=== PATIENT | female | born 1985 | race Caucasian/White ===

== ENCOUNTER 2016-04-03 00:49 | Emergency (ER) | payer OTHER ==
[~2016-04-03] VITALS: Ht 167.6 cm; Wt 151.6 kg
[~2016-04-03 00:49] MED LIST: DILA2TAB2 PO; FLUVOXAMINE PO; LORA-474 PO; PERC10TA27 PO; VERA80TA PO
[2016-04-03] MEDS ORDERED: VERA120T3 PO (01:01)
[2016-04-03] MEDS ORDERED: HYDR-3583 PO (01:01)
[2016-04-03] MEDS ORDERED: IMIT25TA PO (01:01)
[2016-04-03 01:02] VITALS: BP 158/109; PULSE 96; RESP 20; TEMP 98.6; O2SAT 97
[2016-04-03] MEDS ORDERED: MAGNESIUM SULFATE 1 GM PREMIX 100 ML IV ONE (01:15)
[2016-04-03] MEDS ORDERED: VALPROATE INJ 500 MG in SODIUM CHLORIDE 0.9% INJ 100 ML IV ONE (01:15)
[2016-04-03] MEDS ORDERED: SODIUM CHLOR 0.9% 1000 ML INJ 1,000 ML IV SCH (01:30)
[2016-04-03] MEDS ORDERED: HYDROmorphone HCL PF 1 MG/ML VIAL IVP ONE ×2 (01:30→03:00)
[2016-04-03] MEDS ORDERED: ONDANSETRON HCL 4 MG/2 ML VIAL IV ONE ×2 (01:30→03:00)
--- NOTE | 2016-04-03 01:43 | PD ---
HPI Chief Complaint: Headache Time Seen by Provider: 01:00 Travel History International Travel<30 days: No Contact w/Intl Traveler<30days: No Traveled to known affect area: No History of Present Illness HPI The patient is a 30-year-old female, well-known to the emergency department because of her multiple visits for intractable migraine. She often needs admission for these because the migraine headache simply does not go away. She states that she took 10 mg of Imitrex which was called in to her tonight by Dr. Woods, her neurologist. She states the first 5 mg worked slightly but the second 5 mg did not. She states that in the past she was given large doses of valproic acid IV which worked. She states that when she was put on by mouth valproic acid her liver enzymes started to go up. Her liver enzymes have been normal as of 26 February of last year. This is her typical migraine type headache. She has not been vomiting and has minimal nausea. She denies any focal neurologic change. The patient has had extensive workup for these migraine headaches including MRI/MRA studies which all been negative. Apparently previous lumbar punctures were negative. The patient may have had some problems with steroid therapy and has been taken off of her steroids. PFSH Past Medical History Hx Anticoagulant Therapy: Yes (BABY ASA DAILY) Arthritis: Yes (RA) Asthma: Yes ( A CHILD ONLY) Autoimmune Disease: Yes (RA) Blood Disorders: Yes (FACTOR 2, MTHFR) Anxiety: Yes Depression: Yes Heart Rhythm Problems: Yes ("palpitations" ) Cancer: No Cardiovascular Problems: No High Cholesterol: Yes Chemotherapy: No Chest Pain: No Congestive Heart Failure: No COPD: No Cerebrovascular Accident: No Diabetes: No Diminished Hearing: No Endocrine: Yes Fibromyalgia: Yes Gastrointestinal Disorders: Yes GERD: Yes Genitourinary: Yes Headaches: Yes Hiatal Hernia: Yes Hypertension: No Immune Disorder: Yes (lyme disease ) Implanted Vascular Access Dvce: No Musculoskeletal: Yes Neurologic: Yes Psychiatric: Yes Reproductive: No Respiratory: Yes Immunizations Current: Yes Migraines: Yes Pneumonia: Yes Radiation Therapy: No Seizures: Yes Sickle Cell Disease: No Sleep Apnea: No Thyroid Disease: Yes (HYPOTHYROID) Ulcer: No ?: Unknown LMP: 03/20/2016 : 5 Para: 2 Miscarriage: 3 Ovarian Cysts: Yes Past Surgical History Abdominal Surgery: Yes AICD: No Arteriovenous Shunt: Yes Cholecystectomy: Yes Hysterectomy: No Insulin Pump: No Joint Replacement: No Oral Surgery: Yes (WISDOM TEETH) Pacemaker: No Other Surgery: Yes Social History Alcohol Use: No (none) Tobacco Use: No (QUIT AGE 18) Substance Use: No Allergies-Medications (Allergen,Severity, Reaction): Coded Allergies: Compazine (Verified Allergy, Intermediate, Rash, 04/03/16) Benadryl (Verified Allergy, Unknown, panic attack, 04/03/16) pt states only when given iv Fioricet (Verified Adverse Reaction, Severe, ANXIETY, 04/03/16) Reglan (Verified Adverse Reaction, Severe, ANXIETY, 04/03/16) Toradol (Verified Adverse Reaction, Severe, RASH, 04/03/16) Tramadol (Verified Adverse Reaction, Severe, MED REACTION, 04/03/16) Reported Meds & Prescriptions Reported Meds & Active Scripts Active Reported Hydrocodone-Acetaminophen 10-325 mg Tab 1 Tab PO TID PRN Imitrex (Sumatriptan Succinate) 25 Mg Tab 10 Mg PO ONCE PRN If a satisfactory response has not been obtained at 2 hours, a second dose may be administered Verapamil (Verapamil HCl) 120 Mg Tab 120 Mg PO DAILY [Luvoxamine] 100 Mg PO DAILY Ativan (Lorazepam) 1 Mg Tab 1 Mg PO BID PRN Percocet (Oxycodone-Acetaminophen) 10-325 mg Tab 1 Tab PO DAILY PRN Review of Systems Except as stated in HPI: all other systems reviewed are Neg Physical Exam Narrative GENERAL: The patient is alert, morbidly obese in moderate to severe distress with her headache. Her vital signs show pulse of 96 and blood pressure 138/109 but are otherwise normal. She answers questions quickly and appropriate and does not appear in any way intoxicated. SKIN: Warm and dry. No skin rash is noted. HEAD: Atraumatic. Normocephalic. EYES: Pupils equal and round. No scleral icterus. No injection or drainage. ENT: No nasal bleeding or discharge. Mucous membranes pink and moist. NECK: Trachea midline. No JVD. There is no meningismus present. CARDIOVASCULAR: Regular rate and rhythm. No murmur appreciated. RESPIRATORY: No accessory muscle use. Clear to auscultation. Breath sounds equal bilaterally. GASTROINTESTINAL: Abdomen soft, non-tender, nondistended. Hepatic and splenic margins not palpable. MUSCULOSKELETAL: No obvious deformities. No clubbing. No cyanosis. No edema. NEUROLOGICAL: Awake and alert. No obvious cranial nerve deficits. Motor grossly within normal limits. Normal speech. PSYCHIATRIC: Appropriate mood and affect; insight and judgment normal. Data Data Last Documented VS Vital Signs Date Time Temp Pulse Resp B/P Pulse Ox O2 Delivery O2 Flow Rate FiO2 04/03/16 03:45 73 17 118/85 95 Room Air 04/03/16 01:02 98.6 Orders Valproate Inj (Depacon Inj) (04/03/16 01:15) Complete Blood Count With Diff (04/03/16 01:12) Comprehensive Metabolic Panel (04/03/16 01:12) Urinalysis - C+S If Indicated (04/03/16 01:12) Magnesium (Mg) (04/03/16 01:12) Magnesium Sulfate 1 Gm Premix (Magnesium (04/03/16 01:15) Hydromorphone Pf Inj (Dilaudid Pf Inj) (04/03/16 01:30) Ondansetron Inj (Zofran Inj) (04/03/16 01:30) Sodium Chlor 0.9% 1000 Ml Inj (Ns 1000 M (04/03/16 01:30) Ondansetron Inj (Zofran Inj) (04/03/16 03:00) Hydromorphone Pf Inj (Dilaudid Pf Inj) (04/03/16 03:00) Labs Laboratory Tests Test 04/03/16 04/03/16 01:45 03:00 White Blood Count 11.0 TH/MM3 Red Blood Count 4.76 MIL/MM3 Hemoglobin 13.5 GM/DL Hematocrit 40.0 % Mean Corpuscular Volume 84.0 FL Mean Corpuscular Hemoglobin 28.4 PG Mean Corpuscular Hemoglobin 33.8 % Concent Red Cell Distribution Width 12.0 % Platelet Count 270 TH/MM3 Mean Platelet Volume 7.9 FL Neutrophils (%) (Auto) 59.7 % Lymphocytes (%) (Auto) 33.4 % Monocytes (%) (Auto) 3.9 % Eosinophils (%) (Auto) 2.1 % Basophils (%) (Auto) 0.9 % Neutrophils # (Auto) 6.6 TH/MM3 Lymphocytes # (Auto) 3.7 TH/MM3 Monocytes # (Auto) 0.4 TH/MM3 Eosinophils # (Auto) 0.2 TH/MM3 Basophils # (Auto) 0.1 TH/MM3 CBC Comment DIFF FINAL Differential Comment Sodium Level 142 MEQ/L Potassium Level 3.8 MEQ/L Chloride Level 104 MEQ/L Carbon Dioxide Level 32.6 MEQ/L Anion Gap 5 MEQ/L Blood Urea Nitrogen 9 MG/DL Creatinine 0.76 MG/DL Estimat Glomerular Filtration 88 ML/MIN Rate Random Glucose 143 MG/DL Calcium Level 8.8 MG/DL Magnesium Level 1.8 MG/DL Total Bilirubin 0.3 MG/DL Aspartate Amino Transf 17 U/L (AST/SGOT) Alanine Aminotransferase 23 U/L (ALT/SGPT) Alkaline Phosphatase 65 U/L Total Protein 7.7 GM/DL Albumin 3.3 GM/DL Urine Color YELLOW Urine Turbidity CLEAR Urine pH 6.0 Urine Specific [place] 1.022 Urine Protein NEG mg/dL Urine Glucose (UA) NEG mg/dL Urine Ketones TRACE mg/dL Urine Occult Blood TRACE Urine Nitrite NEG Urine Bilirubin NEG Urine Leukocyte Esterase TRACE Urine RBC 0-3 /hpf Urine WBC 3-5 /hpf Urine Squamous Epithelial 6-8 /hpf Cells Urine Bacteria OCC /hpf Microscopic Urinalysis Comment CULT NOT INDICATED MDM Medical Decision Making Medical Screen Exam Complete: Yes Emergency Medical Condition: Yes Medical Record Reviewed: Yes Interpretation(s) The complete metabolic profile shows a bicarbonate of 32.6 with GFR of 88 and glucose 143 and albumen 3.3 but is otherwise unremarkable. The CBC is normal. Differential Diagnosis Migraine headache, cluster headache, anxiety, depression, intracranial hemorrhagehighly unlikely Narrative Course It is now 0350 and the patient requests more Dilaudid. It is now 0408 and the patient's headache is resolving but she feels anxious. The patient will be given 1 mg of Ativan IV and go home and try and sleep. She does want to go home. Diagnosis Primary Impression: Migraine headache Additional Impression: Anxiety and depression Additional Instructions: Follow-up with Dr. Woods. When you go home try to sleep and you can take another 1 mg of Ativan to help you sleep and for the anxiety. Med/Other Pt SpecificInfo: No Change to Meds Disposition: 01 DISCHARGE HOME Condition: Stable Johnathan Majano MD Apr 03, 2016 01:43
[2016-04-03 01:50] LABS: AUTOMATED NEUTROPHIL # 6.6 TH/MM3 (1.8-7.7); BASOPHIL # 0.1 TH/MM3 (0-0.2); BASOPHIL % 0.9 % (0.0-2.0); EOSINOPHIL # 0.2 TH/MM3 (0-0.4); EOSINOPHIL % 2.1 % (0.0-4.0); HEMO FLAGS DIFF FINAL; LYMPH % 33.4 % (9.0-44.0); LYMPHOCYTE # 3.7 TH/MM3 (1.0-4.8); MEAN CORPUSCULAR HEMOGLOBIN 28.4 PG (27.0-34.0); MEAN CORPUSCULAR HGB CONC 33.8 % (32.0-36.0); MONO % 3.9 % (0.0-8.0); NEUT % 59.7 % (16.0-70.0); PLATELET COUNT 270 TH/MM3 (150-450); RED BLOOD COUNT 4.76 MIL/MM3 (4.00-5.30)
[2016-04-03 01:58] LABS: CHLORIDE 104 MEQ/L (98-107); POTASSIUM 3.8 MEQ/L (3.5-5.1); SODIUM (NA) 142 MEQ/L (136-145)
[2016-04-03 02:02] LABS: ANION GAP 5 MEQ/L (5-15); BICARBONATE 32.6 MEQ/L (21.0-32.0); BLOOD UREA NITROGEN 9 MG/DL (7-18); MAGNESIUM 1.8 MG/DL (1.5-2.5)
[2016-04-03 02:05] LABS: ALT (GPT) 23 U/L (10-53); AST (GOT) 17 U/L (15-37); GLOMERULAR FILTRATION RATE 88 ML/MIN (>89)
[2016-04-03 02:07] LABS: TOTAL BILIRUBIN ADULT 0.3 MG/DL (0.2-1.0)
[2016-04-03 02:08] LABS: ALKALINE PHOSPHATASE 65 U/L (45-117)
[2016-04-03 03:12] LABS: BLOOD, URINE TRACE (NEG); GLUCOSE,URINE NEG (NEG); KETONE, URINE TRACE mg/dL (NEG); NITRITE,URINE NEG (NEG)
[2016-04-03 03:18] LABS: BACTERIA, URINE OCC /hpf; COMMENT (UR) CULT NOT INDICATED; CULTURE IF INDICATED CULT NOT INDICATED; RBC, URINE 0-3 /hpf (0-3); URINE COLOR YELLOW (YELLW/STRAW)
[2016-04-03 03:45] VITALS: BP 118/85; PULSE 73; RESP 17; O2SAT 95
[2016-04-03] MEDS ORDERED: LORazepam 2 MG/ML VIAL IV PUSH ONE (04:15)
[2016-04-03 04:45] VITALS: BP 129/80; PULSE 87; RESP 17; TEMP 98.2; O2SAT 98
== END 2016-04-03 04:57 | disposition home or self-care (01) ==
LOC: PHED 00:49
DX: G43.909 Migraine, unspecified, not intractable, without status migrainosus (principal); F41.8 Other specified anxiety disorders; Z79.82 Long term (current) use of aspirin; M06.9 Rheumatoid arthritis, unspecified; E78.00 Pure hypercholesterolemia, unspecified; M79.7 Fibromyalgia; E03.9 Hypothyroidism, unspecified
CPT/HCPCS: 80053; 81001; 83735; 85025; 96361; 96365; 96375; 99283; J1170; J2060; J2405; J3475; J7030

== ENCOUNTER 2016-05-27 00:43 | Emergency (ER) | payer OTHER ==
[~2016-05-27] VITALS: Ht 167.6 cm; Wt 150.8 kg
[~2016-05-27 00:43] MED LIST changes: -DILA2TAB2 PO; +HYDR-3583 PO; +IMIT25TA PO; +VERA120T3 PO; -VERA80TA PO
[2016-05-27 00:54] VITALS: BP 148/98; PULSE 92; RESP 18; TEMP 98.1; O2SAT 96
[2016-05-27] MEDS ORDERED: FLUVOXAMINE (01:51)
[2016-05-27] MEDS ORDERED: CHEL50TA (01:56)
[2016-05-27] MEDS ORDERED: CHOL1CAP6 (01:56)
[2016-05-27] MEDS ORDERED: ASPI81CH CHEW (01:56)
[2016-05-27] MEDS ORDERED: CYAN25003 SL (01:56)
[2016-05-27] MEDS ORDERED: SODIUM CHLOR 0.9% 1000 ML INJ 1,000 ML IV ONE ×3 (03:34→05:30)
[2016-05-27] MEDS: RESP: ALBUTEROL 2.5 MG/IPRATROPIUM 0.5 MG NEB (SCH) INH (03:44)
[2016-05-27] MEDS ORDERED: SODIUM CHLORIDE 0.9% FLUSH 5 ML FLUSH IVF PRN (03:45)
[2016-05-27] MEDS ORDERED: VALPROATE INJ 500 MG in SODIUM CHLORIDE 0.9% INJ 100 ML IV ONE (03:45)
[2016-05-27 03:47] VITALS: O2SAT 97
[2016-05-27 04:02] LABS: AUTOMATED NEUTROPHIL # 4.3 TH/MM3 (1.8-7.7); BASOPHIL # 0.1 TH/MM3 (0-0.2); BASOPHIL % 0.6 % (0.0-2.0); EOSINOPHIL # 0.4 TH/MM3 (0-0.4); EOSINOPHIL % 4.8 % (0.0-4.0); HEMATOCRIT 38.2 % (35.0-46.0); HEMO FLAGS DIFF FINAL; LYMPH % 37.9 % (9.0-44.0); LYMPHOCYTE # 3.3 TH/MM3 (1.0-4.8); MEAN CELL VOLUME 83.8 FL (80.0-100.0); MEAN CORPUSCULAR HEMOGLOBIN 28.4 PG (27.0-34.0); MEAN CORPUSCULAR HGB CONC 33.8 % (32.0-36.0); MONO % 6.5 % (0.0-8.0); NEUT % 50.2 % (16.0-70.0); PLATELET COUNT 244 TH/MM3 (150-450); RED BLOOD COUNT 4.55 MIL/MM3 (4.00-5.30); RED CELL DISTRIBUTION WIDTH 12.9 % (11.6-17.2); WHITE BLOOD COUNT 8.7 TH/MM3 (4.0-11.0)
[2016-05-27] MEDS: MAGNESIUM SULFATE 1 GM PREMIX 100 ML IV SCH ×2 (04:09→05:18)
[2016-05-27 04:10] LABS: CHLORIDE 107 MEQ/L (98-107); POTASSIUM 3.8 MEQ/L (3.5-5.1); SODIUM (NA) 143 MEQ/L (136-145)
[2016-05-27 04:13] LABS: ANION GAP 8 MEQ/L (5-15); BICARBONATE 28.5 MEQ/L (21.0-32.0); BLOOD UREA NITROGEN 10 MG/DL (7-18)
--- NOTE | 2016-05-27 04:16 | RADHPO ---
EXAM DATE/TIME: 05/27/2016 03:52 [facility] COMPARISON: CHEST SINGLE AP, March 28, 2015, 12:54. INDICATIONS : Body aches, flu-like symptoms for 1 week MEDICAL HISTORY : None. SURGICAL HISTORY : None. ENCOUNTER: Initial ACUITY: 1 week PAIN SCORE: 0/10 LOCATION: Bilateral chest FINDINGS: Single AP view of the chest. The lungs are clear. Cardiomediastinal silhouette within normal limits. No evidence of pleural effusion or pneumothorax. CONCLUSION: No acute cardiopulmonary disease identified. Aron Rascon MD on May 27, 2016 at 4:12 Board Certified Radiologist. This report was verified electronically.
[2016-05-27 04:17] LABS: ALT (GPT) 25 U/L (10-53); GLOMERULAR FILTRATION RATE 106 ML/MIN (>89)
[2016-05-27 04:18] VITALS: PULSE 84; RESP 16; O2SAT 96
[2016-05-27 04:18] LABS: TOTAL BILIRUBIN ADULT 0.4 MG/DL (0.2-1.0)
[2016-05-27 04:19] LABS: ALKALINE PHOSPHATASE 56 U/L (45-117)
[2016-05-27 04:20] LABS: AST (GOT) 13 U/L (15-37)
[2016-05-27 05:16] VITALS: BP 107/63; PULSE 84; RESP 16; O2SAT 97
[2016-05-27] MEDS ORDERED: LORazepam 2 MG/ML VIAL IV PUSH ONE (05:30)
--- NOTE | 2016-05-27 05:31 | PD ---
HPI Chief Complaint: Headache Time Seen by Provider: 03:26 Travel History International Travel<30 days: No Contact w/Intl Traveler<30days: No Traveled to known affect area: No History of Present Illness HPI Patient is a 30-year-old female who is well-known to the emergency room with history of migraine headaches. Patient reports that she does see a neurologist for migraine headaches, reports that she is prescribed Imitrex when she has onset of symptoms. Patient reports that her kids have been sick for the past 3 days, reports that she has been running around with them and reports that she had developed a productive cough with thick green sputum's. Patient reports that she ended up developing a migraine headache for the past 3 days, reports that she did take a dose of her Imitrex and reports no relief of symptoms with this. Patient reports that Dilaudid, Depakote, magnesium, IV fluids usually help with her symptoms as every time she comes the emergency room, she is prescribed this and it works. Patient reports that she has her typical migraine headache at this time, patient requesting her migraine cocktail. PFSH Past Medical History Hx Anticoagulant Therapy: Yes (BABY ASA DAILY) Arthritis: Yes (RA) Asthma: Yes ( A CHILD ONLY) Autoimmune Disease: Yes (RA) Blood Disorders: Yes (FACTOR 2, MTHFR) Anxiety: Yes Depression: Yes Heart Rhythm Problems: Yes (PALPITATIONS) Cancer: No Cardiovascular Problems: No High Cholesterol: Yes Chemotherapy: No Chest Pain: No Congestive Heart Failure: No COPD: No Cerebrovascular Accident: No Diabetes: No Diminished Hearing: No Endocrine: Yes Fibromyalgia: Yes Gastrointestinal Disorders: Yes GERD: Yes Genitourinary: Yes Headaches: Yes Hiatal Hernia: Yes Hypertension: No Immune Disorder: Yes (lyme disease ) Implanted Vascular Access Dvce: No Musculoskeletal: Yes Neurologic: Yes Psychiatric: Yes Reproductive: No Respiratory: Yes Immunizations Current: Yes Migraines: Yes Pneumonia: Yes Radiation Therapy: No Seizures: Yes Sickle Cell Disease: No Sleep Apnea: No Thyroid Disease: Yes (HYPOTHYROID) Ulcer: No ?: Not : 5 Para: 2 Miscarriage: 3 Ovarian Cysts: Yes Past Surgical History Abdominal Surgery: Yes AICD: No Arteriovenous Shunt: Yes Cholecystectomy: Yes Hysterectomy: No Insulin Pump: No Joint Replacement: No Oral Surgery: Yes (WISDOM TEETH) Pacemaker: No Other Surgery: Yes Social History Alcohol Use: No Tobacco Use: No (QUIT AGE 18) Substance Use: No Allergies-Medications (Allergen,Severity, Reaction): Coded Allergies: Compazine (Verified Allergy, Intermediate, Rash, 05/27/16) Benadryl (Verified Allergy, Unknown, panic attack, 05/27/16) pt states only when given iv Fioricet (Verified Adverse Reaction, Severe, ANXIETY, 05/27/16) Reglan (Verified Adverse Reaction, Severe, ANXIETY, 05/27/16) Toradol (Verified Adverse Reaction, Severe, RASH, 05/27/16) Tramadol (Verified Adverse Reaction, Severe, MED REACTION, 05/27/16) Reported Meds & Prescriptions Reported Meds & Active Scripts Active Reported Vitamin D-3 (Cholecalciferol) 1,000 Unit Cap Zinc (Zinc Gluconate) 50 Mg Tab Vitamin B-12 (Cyanocobalamin) 2,500 Mcg Subl 2,500 Mcg SL DAILY Aspirin 81 Mg Chew 81 Mg CHEW DAILY [Luvoxamine] Hydrocodone-Acetaminophen 10-325 mg Tab 1 Tab PO TID PRN Imitrex (Sumatriptan Succinate) 25 Mg Tab 10 Mg PO ONCE PRN If a satisfactory response has not been obtained at 2 hours, a second dose may be administered Verapamil (Verapamil HCl) 120 Mg Tab 120 Mg PO DAILY Ativan (Lorazepam) 1 Mg Tab 1 Mg PO BID PRN Percocet (Oxycodone-Acetaminophen) 10-325 mg Tab 1 Tab PO DAILY PRN Review of Systems General / Constitutional: No: Fever Eyes: No: Visual changes HENT: No: Headaches Cardiovascular: No: Chest Pain or Discomfort Respiratory: Positive: Cough, No: Shortness of Breath Gastrointestinal: No: Abdominal Pain Genitourinary: No: Dysuria Musculoskeletal: No: Pain Skin: No Rash Neurologic: Positive: Headache, No: Weakness Psychiatric: No: Depression Endocrine: No: Polydipsia Hematologic/Lymphatic: No: Easy Bruising Physical Exam Narrative GENERAL: No acute distress, nontoxic, patient was sleeping on stretcher when I went to evaluate her, patient had to be awaken for exam SKIN: Warm and dry. HEAD: Atraumatic. Normocephalic. EYES: Pupils equal and round. No scleral icterus. No injection or drainage. ENT: No nasal bleeding or discharge. Mucous membranes pink and moist. NECK: Trachea midline. No JVD. CARDIOVASCULAR: Regular rate and rhythm. No murmur appreciated. RESPIRATORY: No accessory muscle use. Clear to auscultation. Breath sounds equal bilaterally. GASTROINTESTINAL: Abdomen soft, non-tender, nondistended. Hepatic and splenic margins not palpable. MUSCULOSKELETAL: No obvious deformities. No clubbing. No cyanosis. No edema. NEUROLOGICAL: Awake and alert. No obvious cranial nerve deficits. Motor grossly within normal limits. Normal speech. PSYCHIATRIC: Appropriate mood and affect; insight and judgment normal. Data Data Last Documented VS Vital Signs Date Time Temp Pulse Resp B/P Pulse Ox O2 Delivery O2 Flow Rate FiO2 05/27/16 05:16 84 16 107/63 97 Room Air 05/27/16 00:54 98.1 Orders Complete Blood Count With Diff (05/27/16 03:34) Comprehensive Metabolic Panel (05/27/16 03:34) Iv Access Insert/Monitor (05/27/16 03:34) Sodium Chloride 0.9% Flush (Ns Flush) (05/27/16 03:45) Sodium Chlor 0.9% 1000 Ml Inj (Ns 1000 M (05/27/16 03:34) Chest, Single Ap (05/27/16 03:34) Influenzae A/B Antigen (05/27/16 03:34) Ed Urine Pregnancytest Poc (05/27/16 03:34) Magnesium Sulfate 1 Gm Premix (Magnesium (05/27/16 03:45) Valproate Inj (Depacon Inj) (05/27/16 03:45) Albuterol-Ipratropium Neb (Duoneb Neb) (05/27/16 03:45) Sodium Chlor 0.9% 1000 Ml Inj (Ns 1000 M (05/27/16 03:45) Lorazepam Inj (Ativan Inj) (05/27/16 05:30) Sodium Chlor 0.9% 1000 Ml Inj (Ns 1000 M (05/27/16 05:30) Labs Laboratory Tests Test 05/27/16 03:45 White Blood Count 8.7 TH/MM3 Red Blood Count 4.55 MIL/MM3 Hemoglobin 12.9 GM/DL Hematocrit 38.2 % Mean Corpuscular Volume 83.8 FL Mean Corpuscular Hemoglobin 28.4 PG Mean Corpuscular Hemoglobin 33.8 % Concent Red Cell Distribution Width 12.9 % Platelet Count 244 TH/MM3 Mean Platelet Volume 8.1 FL Neutrophils (%) (Auto) 50.2 % Lymphocytes (%) (Auto) 37.9 % Monocytes (%) (Auto) 6.5 % Eosinophils (%) (Auto) 4.8 % Basophils (%) (Auto) 0.6 % Neutrophils # (Auto) 4.3 TH/MM3 Lymphocytes # (Auto) 3.3 TH/MM3 Monocytes # (Auto) 0.6 TH/MM3 Eosinophils # (Auto) 0.4 TH/MM3 Basophils # (Auto) 0.1 TH/MM3 CBC Comment DIFF FINAL Differential Comment Sodium Level 143 MEQ/L Potassium Level 3.8 MEQ/L Chloride Level 107 MEQ/L Carbon Dioxide Level 28.5 MEQ/L Anion Gap 8 MEQ/L Blood Urea Nitrogen 10 MG/DL Creatinine 0.65 MG/DL Estimat Glomerular Filtration 106 ML/MIN Rate Random Glucose 91 MG/DL Calcium Level 8.4 MG/DL Total Bilirubin 0.4 MG/DL Aspartate Amino Transf 13 U/L (AST/SGOT) Alanine Aminotransferase 25 U/L (ALT/SGPT) Alkaline Phosphatase 56 U/L Total Protein 6.9 GM/DL Albumin 3.2 GM/DL MDM Medical Decision Making Medical Screen Exam Complete: Yes Emergency Medical Condition: Yes Interpretation(s) Vital Signs Date Time Temp Pulse Resp B/P Pulse Ox O2 Delivery O2 Flow Rate FiO2 05/27/16 05:16 84 16 107/63 97 Room Air 05/27/16 04:18 84 16 96 Room Air 05/27/16 03:47 97 05/27/16 02:00 Room Air 05/27/16 01:51 05/27/16 00:54 98.1 92 18 148/98 96 Differential Diagnosis Migraine, anxiety, pneumonia, bronchitis Narrative Course Patient is a 30-year-old female who presents to emergency room with complaints of typical migraine headache. Patient requesting her migraine cocktail which consists of IV Dilaudid, magnesium, IV fluids and Depakote. Patient is comfortable appearing upon presentation to the emergency room. Patient was actually in a deep sleep when I went to evaluate her initially, patient had to be woken up to evaluate her. Patient overall with benign neurological exam with no neurological deficits. Discussed with patient that I do not prescribe narcotic medications for migraine headaches. Patient agreeable to IV magnesium IV fluids and IV Depakote. Patient reevaluated, patient reports that she still has a headache, repeat neurological exam benign. We'll give a dose of IV Ativan and another liter fluids. 2 mg of magnesium initially ordered, patient requests only 1 mg of magnesium as a second dose "will make me shakey." CBC & BMP Diagram 05/27/16 03:45 Last Impressions Chest X-Ray 05/27/16 0334 Signed Impressions: Service Date/Time: May 03:52 - CONCLUSION: No acute cardiopulmonary disease identified. Aron Rascon MD Patient reevaluated, patient reports that she is feeling much better. Patient requests to be discharged from the emergency room at this time. Patient will follow-up with her primary care doctor as well as her neurologist and will return to emergency room as needed Diagnosis Primary Impression: Cephalgia Qualified Code: R51 - Nonintractable headache, unspecified chronicity pattern , unspecified headache type Patient Instructions: General Instructions Additional Instructions: Please follow-up with your primary care doctor as well as well as your neurologist as soon as possible Disposition: 01 DISCHARGE HOME Condition: Stable Sabrina Roland DO May 27, 2016 05:31
== END 2016-05-27 05:58 | disposition home or self-care (01) ==
LOC: PHED 00:43
DX: G43.909 Migraine, unspecified, not intractable, without status migrainosus (principal); E78.00 Pure hypercholesterolemia, unspecified; M79.7 Fibromyalgia; E03.9 Hypothyroidism, unspecified; Z79.82 Long term (current) use of aspirin
CPT/HCPCS: 71010; 80053; 84703; 85025; 87804; 94640; 94664; 96361; 96365; 96375; 99283; J2060; J3475; J7030

== ENCOUNTER 2016-06-04 01:00 | Emergency (ER) | payer OTHER ==
[~2016-06-04] VITALS: Ht 167.6 cm; Wt 151.0 kg
[~2016-06-04 01:00] MED LIST changes: +ASPI81CH CHEW; +CHEL50TA; +CHOL1CAP6; +CYAN25003 SL; +FLUVOXAMINE; -FLUVOXAMINE PO
[2016-06-04 01:08] VITALS: BP 136/100; PULSE 120; RESP 18; TEMP 98.9; O2SAT 96
== END 2016-06-04 02:08 | disposition left against medical advice (07) ==
LOC: PHED 01:00
DX: R68.89 Other general symptoms and signs (principal)
CPT/HCPCS: 99281

== ENCOUNTER 2016-06-25 03:17 | Emergency (ER) | payer OTHER ==
[~2016-06-25] VITALS: Ht 167.6 cm; Wt 149.2 kg
[2016-06-25 03:25] VITALS: BP 134/93; PULSE 86; RESP 18; TEMP 97.7; O2SAT 93
[2016-06-25] MEDS ORDERED: FLUV100T PO (03:37)
[2016-06-25] MEDS ORDERED: ALBUAER3 INH (03:38)
[2016-06-25] MEDS ORDERED: MULTTAB67 PO (03:39)
[2016-06-25] MEDS ORDERED: MUCI600T PO ×2 (03:42)
[2016-06-25] MEDS ORDERED: VALPROATE INJ 500 MG in SODIUM CHLORIDE 0.9% INJ 100 ML IV ONE (04:00)
--- NOTE | 2016-06-25 04:04 | PD ---
HPI Chief Complaint: Respiratory Symptoms Time Seen by Provider: 03:31 Travel History International Travel<30 days: No Contact w/Intl Traveler<30days: No Traveled to known affect area: No History of Present Illness HPI The patient is a 30-year-old female fairly well known to this emergency department for her frequent visits regarding migraine headache. Lately, we have not been giving her Dilaudid because it is suspected that she may be becoming dependent on this drug. The patient comes in for her usual migraine headache as well as shortness of breath, cough and runny nose. She has had a history of asthma as a child and has an albuterol HFA inhaler which sometimes helps. She does not smoke. She has an appointment with her primary care physician Dr. Mello on Tuesday. She denies any fever. The patient's migraine headache is characteristic in that she seldom gets better in the emergency department and often requests admission. She states her doctors have been controlling the headache and is not as frequent as it once was. PFSH Past Medical History Hx Anticoagulant Therapy: Yes (BABY ASA DAILY) Arthritis: Yes (RA) Asthma: Yes (has a resuce inhailer) Autoimmune Disease: Yes (RA) Blood Disorders: Yes (FACTOR 2, MTHFR) Anxiety: Yes Depression: Yes Heart Rhythm Problems: Yes (PALPITATIONS) Cancer: No Cardiovascular Problems: No High Cholesterol: Yes Chemotherapy: No Chest Pain: No Congestive Heart Failure: No COPD: No Cerebrovascular Accident: No Diabetes: No Diminished Hearing: No Endocrine: Yes Fibromyalgia: Yes Gastrointestinal Disorders: Yes GERD: Yes Genitourinary: Yes Headaches: Yes Hiatal Hernia: Yes Hypertension: No Immune Disorder: Yes (lyme disease ) Implanted Vascular Access Dvce: No Musculoskeletal: Yes Neurologic: Yes Psychiatric: Yes Reproductive: No Respiratory: Yes Immunizations Current: Yes Migraines: Yes Pneumonia: Yes Radiation Therapy: No Seizures: Yes Sickle Cell Disease: No Sleep Apnea: No Thyroid Disease: Yes (HYPOTHYROID) Ulcer: No Influenza Vaccination: Yes ?: Not LMP: 06/18/16 : 5 Para: 2 Miscarriage: 3 Ovarian Cysts: Yes Past Surgical History Abdominal Surgery: Yes AICD: No Arteriovenous Shunt: Yes Cholecystectomy: Yes Hysterectomy: No Insulin Pump: No Joint Replacement: No Oral Surgery: Yes (WISDOM TEETH) Pacemaker: No Other Surgery: Yes Social History Alcohol Use: No Tobacco Use: No (QUIT AGE 18) Substance Use: No Allergies-Medications (Allergen,Severity, Reaction): Coded Allergies: Compazine (Verified Allergy, Intermediate, Rash, 05/27/16) Benadryl (Verified Allergy, Unknown, panic attack, 05/27/16) pt states only when given iv Fioricet (Verified Adverse Reaction, Severe, ANXIETY, 05/27/16) Reglan (Verified Adverse Reaction, Severe, ANXIETY, 05/27/16) Toradol (Verified Adverse Reaction, Severe, RASH, 05/27/16) Tramadol (Verified Adverse Reaction, Severe, MED REACTION, 05/27/16) Reported Meds & Prescriptions Reported Meds & Active Scripts Active Reported Mucinex ER 12 HR (Guaifenesin) 600 Mg Jessa 600 Mg PO Mucinex ER 12 HR (Guaifenesin) 600 Mg Jessa 600 Mg PO BID Multiple Vitamin 1 Tab 1 Tab PO DAILY Proair Hfa 8.5 GM Inh (Albuterol Sulfate) 90 Mcg/Act Aer 2 Puff INH BID PRN 108 mcg/actuation Fluvoxamine (Fluvoxamine Maleate) 100 Mg Tab 100 Mg PO HS Vitamin D-3 (Cholecalciferol) 1,000 Unit Cap Zinc (Zinc Gluconate) 50 Mg Tab Vitamin B-12 (Cyanocobalamin) 2,500 Mcg Subl 2,500 Mcg SL DAILY Aspirin 81 Mg Chew 81 Mg CHEW DAILY Hydrocodone-Acetaminophen 10-325 mg Tab 1 Tab PO TID PRN Imitrex (Sumatriptan Succinate) 25 Mg Tab 10 Mg PO ONCE PRN If a satisfactory response has not been obtained at 2 hours, a second dose may be administered Verapamil (Verapamil HCl) 120 Mg Tab 120 Mg PO DAILY Percocet (Oxycodone-Acetaminophen) 10-325 mg Tab 1 Tab PO DAILY PRN Review of Systems Except as stated in HPI: all other systems reviewed are Neg Physical Exam Narrative GENERAL: The patient is alert, oriented 3, obese in moderate apparent distress with her migraine headache. She is in minimal respiratory distress. Her vital signs show blood pressure 134/93 with oximetry 93% but are otherwise normal. SKIN: Focused skin assessment warm/dry. HEAD: Atraumatic. Normocephalic. EYES: Pupils equal and round. No scleral icterus. No injection or drainage. ENT: No nasal bleeding or discharge. Mucous membranes pink and moist. NECK: Trachea midline. No JVD. CARDIOVASCULAR: Regular rate and rhythm. No murmur appreciated. RESPIRATORY: No accessory muscle use. A few widely scattered wheezes are heard bilaterally. Breath sounds equal bilaterally. GASTROINTESTINAL: Abdomen soft, non-tender, nondistended. Hepatic and splenic margins not palpable. MUSCULOSKELETAL: No obvious deformities. No clubbing. No cyanosis. No edema. NEUROLOGICAL: Awake and alert. No obvious cranial nerve deficits. Motor grossly within normal limits. Normal speech. PSYCHIATRIC: Appropriate mood and affect; insight and judgment normal. Data Data Last Documented VS Vital Signs Date Time Temp Pulse Resp B/P Pulse Ox O2 Delivery O2 Flow Rate FiO2 06/25/16 05:56 16 06/25/16 03:53 75 93 Room Air 06/25/16 03:25 97.7 134/93 Orders Valproate Inj (Depacon Inj) (06/25/16 04:00) Complete Blood Count With Diff (06/25/16 03:57) Comprehensive Metabolic Panel (06/25/16 03:57) Urinalysis - C+S If Indicated (06/25/16 03:57) Magnesium (Mg) (06/25/16 03:57) Albuterol-Ipratropium Neb (Duoneb Neb) (06/25/16 04:00) Influenzae A/B Antigen (06/25/16 04:04) Sodium Chloride 0.9% Flush (Ns Flush) (06/25/16 04:15) Sodium Chlor 0.9% 1000 Ml Inj (Ns 1000 M (06/25/16 05:15) Morphine Inj (Morphine Inj) (06/25/16 05:30) Ondansetron Inj (Zofran Inj) (06/25/16 05:30) Labs Laboratory Tests Test 06/25/16 06/25/16 04:10 04:20 Urine Color YELLOW Urine Turbidity CLEAR Urine pH 5.0 Urine Specific [place] 1.034 Urine Protein NEG mg/dL Urine Glucose (UA) NEG mg/dL Urine Ketones NEG mg/dL Urine Occult Blood NEG Urine Nitrite NEG Urine Bilirubin NEG Urine Leukocyte Esterase NEG Urine RBC 0-2 /hpf Urine WBC 0-2 /hpf Urine Squamous Epithelial 6-8 /hpf Cells Urine Bacteria OCC /hpf Microscopic Urinalysis Comment CULT NOT INDICATED White Blood Count 9.3 TH/MM3 Red Blood Count 4.30 MIL/MM3 Hemoglobin 12.3 GM/DL Hematocrit 35.7 % Mean Corpuscular Volume 83.0 FL Mean Corpuscular Hemoglobin 28.7 PG Mean Corpuscular Hemoglobin 34.6 % Concent Red Cell Distribution Width 12.5 % Platelet Count 256 TH/MM3 Mean Platelet Volume 7.8 FL Neutrophils (%) (Auto) 67.4 % Lymphocytes (%) (Auto) 24.1 % Monocytes (%) (Auto) 4.9 % Eosinophils (%) (Auto) 3.2 % Basophils (%) (Auto) 0.4 % Neutrophils # (Auto) 6.3 TH/MM3 Lymphocytes # (Auto) 2.2 TH/MM3 Monocytes # (Auto) 0.5 TH/MM3 Eosinophils # (Auto) 0.3 TH/MM3 Basophils # (Auto) 0.0 TH/MM3 CBC Comment DIFF FINAL Differential Comment Sodium Level 143 MEQ/L Potassium Level 3.8 MEQ/L Chloride Level 105 MEQ/L Carbon Dioxide Level 28.6 MEQ/L Anion Gap 9 MEQ/L Blood Urea Nitrogen 8 MG/DL Creatinine 0.77 MG/DL Estimat Glomerular Filtration 87 ML/MIN Rate Random Glucose 105 MG/DL Calcium Level 8.5 MG/DL Magnesium Level 2.0 MG/DL Total Bilirubin 0.6 MG/DL Aspartate Amino Transf 24 U/L (AST/SGOT) Alanine Aminotransferase 30 U/L (ALT/SGPT) Alkaline Phosphatase 64 U/L Total Protein 7.5 GM/DL Albumin 3.2 GM/DL MDM Medical Decision Making Medical Screen Exam Complete: Yes Emergency Medical Condition: Yes Medical Record Reviewed: Yes Interpretation(s) The CBC is normal area the complete metabolic profile is normal except for an albumin of 3.2 and GFR of 87. The urine shows specific gravity 1.034 and is otherwise normal and culture is not indicated. Differential Diagnosis Migraine headache, dehydration, electrolyte disorder, anemia Narrative Course It is now 0619 and the patient feels better and wants to go home. The patient appears to have a mild asthma attack as well as migraine headache. She is also situationally depressed over the recent of her father. Diagnosis Primary Impression: Migraine headache Additional Impressions: Asthma Situational depression Additional Instructions: Follow-up with your neurologist as soon as you can. It is encouraging that you are able to go home and don't require admission for your migraine headaches. Med/Other Pt SpecificInfo: No Change to Meds Disposition: 01 DISCHARGE HOME Condition: Stable Johnathan Majano MD Jun 25, 2016 04:04
[2016-06-25] MEDS: RESP: ALBUTEROL 2.5 MG/IPRATROPIUM 0.5 MG NEB (SCH) INH ×3 (04:08→04:26)
[2016-06-25 04:30] VITALS: BP 134/93; PULSE 98; RESP 16; O2SAT 95
[2016-06-25] MEDS: SODIUM CHLORIDE 0.9% FLUSH 10 ML FLUSH IVF PRN ×2 (04:44→05:30)
[2016-06-25 04:47] LABS: BLOOD, URINE NEG (NEG); GLUCOSE,URINE NEG (NEG); KETONE, URINE NEG (NEG); NITRITE,URINE NEG (NEG)
[2016-06-25 04:50] LABS: AUTOMATED NEUTROPHIL # 6.3 TH/MM3 (1.8-7.7); BASOPHIL % 0.4 % (0.0-2.0); EOSINOPHIL # 0.3 TH/MM3 (0-0.4); EOSINOPHIL % 3.2 % (0.0-4.0); HEMATOCRIT 35.7 % (35.0-46.0); HEMO FLAGS DIFF FINAL; LYMPH % 24.1 % (9.0-44.0); LYMPHOCYTE # 2.2 TH/MM3 (1.0-4.8); MEAN CORPUSCULAR HEMOGLOBIN 28.7 PG (27.0-34.0); MEAN CORPUSCULAR HGB CONC 34.6 % (32.0-36.0); MONO % 4.9 % (0.0-8.0); NEUT % 67.4 % (16.0-70.0); PLATELET COUNT 256 TH/MM3 (150-450); RED CELL DISTRIBUTION WIDTH 12.5 % (11.6-17.2); WHITE BLOOD COUNT 9.3 TH/MM3 (4.0-11.0)
[2016-06-25 04:56] LABS: BACTERIA, URINE OCC /hpf; COMMENT (UR) CULT NOT INDICATED; CULTURE IF INDICATED CULT NOT INDICATED; RBC, URINE 0-2 /hpf (0-3); URINE COLOR YELLOW (YELLW/STRAW); WBC, URINE 0-2 /hpf (0-5)
[2016-06-25 04:57] LABS: CHLORIDE 105 MEQ/L (98-107); POTASSIUM 3.8 MEQ/L (3.5-5.1); SODIUM (NA) 143 MEQ/L (136-145)
[2016-06-25 05:01] LABS: ANION GAP 9 MEQ/L (5-15); BICARBONATE 28.6 MEQ/L (21.0-32.0); BLOOD UREA NITROGEN 8 MG/DL (7-18)
[2016-06-25 05:04] LABS: ALT (GPT) 30 U/L (10-53); AST (GOT) 24 U/L (15-37); GLOMERULAR FILTRATION RATE 87 ML/MIN (>89)
[2016-06-25 05:06] LABS: TOTAL BILIRUBIN ADULT 0.6 MG/DL (0.2-1.0)
[2016-06-25 05:07] LABS: ALKALINE PHOSPHATASE 64 U/L (45-117)
[2016-06-25] MEDS: SODIUM CHLOR 0.9% 1000 ML INJ 1,000 ML IV SCH ×2 (05:16→06:00)
[2016-06-25 05:30] VITALS: BP 140/88; PULSE 102; RESP 16; O2SAT 93
[2016-06-25] MEDS ORDERED: ONDANSETRON HCL 4 MG/2 ML VIAL IV PUSH ONE (05:30)
[2016-06-25] MEDS ORDERED: MORPHINE SULFATE 8 MG/ML INJ IV PUSH ONE (05:30)
[2016-06-25] MEDS ORDERED: AUGM875T PO (06:28)
[2016-06-25 06:30] VITALS: BP 136/74; PULSE 100; RESP 16; O2SAT 95
[2016-06-25] MEDS ORDERED: AMOXICILLIN/CLAVULANATE K 875 MG TAB PO ONE (06:30)
== END 2016-06-25 07:07 | disposition home or self-care (01) ==
LOC: PHED 03:17
DX: G43.909 Migraine, unspecified, not intractable, without status migrainosus (principal); J45.909 Unspecified asthma, uncomplicated; M06.9 Rheumatoid arthritis, unspecified; E78.00 Pure hypercholesterolemia, unspecified; M79.7 Fibromyalgia; F43.21 Adjustment disorder with depressed mood; E03.9 Hypothyroidism, unspecified
CPT/HCPCS: 80053; 81001; 83735; 85025; 87804; 94640; 94664; 96361; 96365; 96375; 99284; J2270; J2405; J7030

== ENCOUNTER 2016-07-28 22:20 | Emergency (ER) | payer OTHER ==
[~2016-07-28] VITALS: Ht 167.6 cm; Wt 146.3 kg
[~2016-07-28 22:20] MED LIST changes: +ALBUAER3 INH; +AUGM875T PO; +FLUV100T PO; -FLUVOXAMINE; -LORA-474 PO; +MUCI600T PO; +MULTTAB67 PO
[2016-07-28 22:26] VITALS: BP 135/91; PULSE 86; RESP 20; TEMP 98.7; O2SAT 92
[2016-07-28] MEDS ORDERED: VALPROATE INJ 500 MG in SODIUM CHLORIDE 0.9% INJ 100 ML IV ONE (23:15)
[2016-07-28] MEDS ORDERED: ASPIRIN 325 MG TAB PO ONE (23:15)
[2016-07-28] MEDS ORDERED: SODIUM CHLOR 0.9% 1000 ML INJ 1,000 ML IV ONE (23:15)
[2016-07-28] MEDS ORDERED: SODIUM CHLORIDE 0.9% FLUSH 10 ML FLUSH IVF PRN (23:15)
[2016-07-28] MEDS ORDERED: MAGNESIUM SULFATE 1 GM PREMIX 100 ML IV ONE (23:15)
[2016-07-28 23:30] VITALS: BP 114/68; PULSE 72; RESP 20; O2SAT 96
--- NOTE | 2016-07-28 23:36 | RADHPO ---
EXAM DATE/TIME: 07/28/2016 23:24 [facility] COMPARISON: CHEST SINGLE AP, May 27, 2016, 3:52. INDICATIONS : Chest pain, fever for 24 hours MEDICAL HISTORY : None. SURGICAL HISTORY : None. ENCOUNTER: Initial ACUITY: 1 day PAIN SCORE: 5/10 LOCATION: Bilateral chest FINDINGS: A single view of the chest demonstrates the lungs to be symmetrically aerated without evidence of mas s, infiltrate or effusion. The cardiomediastinal contours are unremarkable. Osseous structures are intact. CONCLUSION: No acute disease. Arjun Alvarado MD on July 28, 2016 at 23:35 Board Certified Radiologist. This report was verified electronically.
[2016-07-28 23:41] LABS: AUTOMATED NEUTROPHIL # 3.3 TH/MM3 (1.8-7.7); BASOPHIL % 0.5 % (0.0-2.0); EOSINOPHIL # 0.3 TH/MM3 (0-0.4); HEMATOCRIT 33.8 % (35.0-46.0); HEMO FLAGS DIFF FINAL; LYMPH % 36.8 % (9.0-44.0); LYMPHOCYTE # 2.4 TH/MM3 (1.0-4.8); MEAN CELL VOLUME 84.7 FL (80.0-100.0); MEAN CORPUSCULAR HEMOGLOBIN 29.6 PG (27.0-34.0); MONO % 6.4 % (0.0-8.0); NEUT % 52.3 % (16.0-70.0); PLATELET COUNT 196 TH/MM3 (150-450); RED BLOOD COUNT 3.99 MIL/MM3 (4.00-5.30); RED CELL DISTRIBUTION WIDTH 12.7 % (11.6-17.2); WHITE BLOOD COUNT 6.4 TH/MM3 (4.0-11.0)
[2016-07-28 23:52] LABS: CHLORIDE 104 MEQ/L (98-107); POTASSIUM 3.6 MEQ/L (3.5-5.1); SODIUM (NA) 139 MEQ/L (136-145)
[2016-07-28 23:57] LABS: ANION GAP 8 MEQ/L (5-15); BICARBONATE 27.2 MEQ/L (21.0-32.0); BLOOD UREA NITROGEN 8 MG/DL (7-18)
[2016-07-29] LABS: GLOMERULAR FILTRATION RATE 82 ML/MIN (>89)
[2016-07-29 00:03] LABS: CREATINE KINASE 152 U/L (26-192)
--- NOTE | 2016-07-29 00:03 | PD ---
HPI Chief Complaint: Cold / Flu Symptoms Time Seen by Provider: 22:36 Travel History International Travel<30 days: No Contact w/Intl Traveler<30days: No Traveled to known affect area: No History of Present Illness HPI The patient is 30 years old offers a few complaints. She suffers with headaches and states today she has a headache. Normal lids bifrontal in location. Today it's further back in the biparietal distribution. Onset gradual. It's constant. She took ibuprofen and Lortab at home which has not helped much at all. She reports a fever for the last 3 days or so. Maximum temperature was 103.0 she states. She has chest pain generalized though predominantly in the sternal distribution. The pain is at its worst at the point of maximum tidal volume. There is no resting chest pain. She also describes some pain in the left leg within the region of the thigh. Finally she has had some hemoptysis, complaints she's had numerous times previously. She reports resuming tobacco smoking several weeks prior when her father due to unexpected cause. She's had no neck stiffness. She has had no loss of consciousness. Headache started gradually. PFSH Past Medical History Hx Anticoagulant Therapy: Yes (BABY ASA DAILY) Arthritis: Yes (RA) Asthma: Yes (has a resuce inhailer) Autoimmune Disease: Yes (RA) Blood Disorders: Yes (FACTOR 2, MTHFR) Anxiety: Yes Depression: Yes Heart Rhythm Problems: Yes (PALPITATIONS) Cancer: No Cardiovascular Problems: No High Cholesterol: Yes Chemotherapy: No Chest Pain: No Congestive Heart Failure: No COPD: No Cerebrovascular Accident: No Diabetes: No Diminished Hearing: No Endocrine: Yes Fibromyalgia: Yes Gastrointestinal Disorders: Yes GERD: Yes Genitourinary: Yes Headaches: Yes Hiatal Hernia: Yes Hypertension: No Immune Disorder: Yes (lyme disease ) Implanted Vascular Access Dvce: No Musculoskeletal: Yes Neurologic: Yes Psychiatric: Yes Reproductive: No Respiratory: Yes Immunizations Current: Yes Migraines: Yes Pneumonia: Yes Radiation Therapy: No Seizures: Yes Sickle Cell Disease: No Sleep Apnea: No Thyroid Disease: Yes (HYPOTHYROID) Ulcer: No ?: Not LMP: LAST WEEK : 5 Para: 2 Miscarriage: 3 Ovarian Cysts: Yes Past Surgical History Abdominal Surgery: Yes AICD: No Arteriovenous Shunt: Yes Cholecystectomy: Yes Hysterectomy: No Insulin Pump: No Joint Replacement: No Oral Surgery: Yes (WISDOM TEETH) Pacemaker: No Other Surgery: Yes Social History Alcohol Use: No Tobacco Use: No (QUIT AGE 18) Substance Use: No Allergies-Medications (Allergen,Severity, Reaction): Coded Allergies: Compazine (Verified Allergy, Intermediate, Rash, 07/28/16) Benadryl (Verified Allergy, Unknown, panic attack, 07/28/16) pt states only when given iv Fioricet (Verified Adverse Reaction, Severe, ANXIETY, 07/28/16) Reglan (Verified Adverse Reaction, Severe, ANXIETY, 07/28/16) Toradol (Verified Adverse Reaction, Severe, RASH, 07/28/16) Tramadol (Verified Adverse Reaction, Severe, MED REACTION, 07/28/16) Reported Meds & Prescriptions Reported Meds & Active Scripts Active Azithromycin 250 Mg Tab 250 Mg PO DAILY Reported Mucinex ER 12 HR (Guaifenesin) 600 Mg Jessa 600 Mg PO BID Multiple Vitamin 1 Tab 1 Tab PO DAILY Proair Hfa 8.5 GM Inh (Albuterol Sulfate) 90 Mcg/Act Aer 2 Puff INH BID PRN 108 mcg/actuation Fluvoxamine (Fluvoxamine Maleate) 100 Mg Tab 100 Mg PO HS Vitamin D-3 (Cholecalciferol) 1,000 Unit Cap Zinc (Zinc Gluconate) 50 Mg Tab Vitamin B-12 (Cyanocobalamin) 2,500 Mcg Subl 2,500 Mcg SL DAILY Aspirin 81 Mg Chew 81 Mg CHEW DAILY Hydrocodone-Acetaminophen 10-325 mg Tab 1 Tab PO TID PRN Imitrex (Sumatriptan Succinate) 25 Mg Tab 10 Mg PO ONCE PRN If a satisfactory response has not been obtained at 2 hours, a second dose may be administered Verapamil (Verapamil HCl) 120 Mg Tab 120 Mg PO DAILY Percocet (Oxycodone-Acetaminophen) 10-325 mg Tab 1 Tab PO DAILY PRN Review of Systems Except as stated in HPI: all other systems reviewed are Neg General / Constitutional: Positive: Fever Cardiovascular: Positive: Chest Pain or Discomfort, No: Syncope Physical Exam Narrative GENERAL: 30-year-old female pleasant well-nourished well-developed SKIN: Focused skin assessment warm/dry. HEAD: Atraumatic. Normocephalic. EYES: Pupils equal and round. No scleral icterus. No injection or drainage. ENT: No nasal bleeding or discharge. Mucous membranes pink and moist. NECK: Trachea midline. No JVD. CARDIOVASCULAR: Regular rate and rhythm. No murmur appreciated. RESPIRATORY: No accessory muscle use. Clear to auscultation. Breath sounds equal bilaterally. GASTROINTESTINAL: Abdomen soft, non-tender, nondistended. Hepatic and splenic margins not palpable. MUSCULOSKELETAL: No obvious deformities. No clubbing. No cyanosis. No warmth erythema or asymmetry of the lower extremities. NEUROLOGICAL: Awake and alert. No obvious cranial nerve deficits. Motor grossly within normal limits. Normal speech. PSYCHIATRIC: Appropriate mood and affect; insight and judgment normal. Data Data Last Documented VS Vital Signs Date Time Temp Pulse Resp B/P Pulse Ox O2 Delivery O2 Flow Rate FiO2 07/29/16 00:37 93 Nasal Cannula 2 07/29/16 00:37 72 20 103/59 112/60 07/28/16 22:26 98.7 Vital signs reviewed Orders Electrocardiogram (07/28/16 23:02) Basic Metabolic Panel (Bmp) (07/28/16 23:02) Ckmb (Isoenzyme) Profile (07/28/16 23:02) Complete Blood Count With Diff (07/28/16 23:02) D-Dimer (07/28/16 23:02) Troponin I (07/28/16 23:02) Chest, Single Ap (07/28/16 23:02) Ecg Monitoring (07/28/16 23:02) Bilateral Bp Monitoring (07/28/16 23:02) Iv Access Insert/Monitor (07/28/16 23:02) Oximetry (07/28/16 23:02) Oxygen Administration (07/28/16 23:02) Aspirin (Aspirin) (07/28/16 23:15) Sodium Chloride 0.9% Flush (Ns Flush) (07/28/16 23:15) Valproate Inj (Depacon Inj) (07/28/16 23:15) Magnesium Sulfate 1 Gm Premix (Magnesium (07/28/16 23:15) Sodium Chlor 0.9% 1000 Ml Inj (Ns 1000 M (07/28/16 23:15) CKMB (07/28/16 23:30) CKMB% (07/28/16 23:30) Ct Pulmonary Angiogram (07/29/16 00:17) Iohexol 350 Inj (Omnipaque 350 Inj) (07/29/16 00:56) Azithromycin (Zithromax) (07/29/16 01:30) Labs Laboratory Tests Test 07/28/16 23:30 White Blood Count 6.4 TH/MM3 Red Blood Count 3.99 MIL/MM3 Hemoglobin 11.8 GM/DL Hematocrit 33.8 % Mean Corpuscular Volume 84.7 FL Mean Corpuscular Hemoglobin 29.6 PG Mean Corpuscular Hemoglobin 35.0 % Concent Red Cell Distribution Width 12.7 % Platelet Count 196 TH/MM3 Mean Platelet Volume 7.6 FL Neutrophils (%) (Auto) 52.3 % Lymphocytes (%) (Auto) 36.8 % Monocytes (%) (Auto) 6.4 % Eosinophils (%) (Auto) 4.0 % Basophils (%) (Auto) 0.5 % Neutrophils # (Auto) 3.3 TH/MM3 Lymphocytes # (Auto) 2.4 TH/MM3 Monocytes # (Auto) 0.4 TH/MM3 Eosinophils # (Auto) 0.3 TH/MM3 Basophils # (Auto) 0.0 TH/MM3 CBC Comment DIFF FINAL Differential Comment D-Dimer Quantitative (PE/DVT) 0.51 MG/L FEU Sodium Level 139 MEQ/L Potassium Level 3.6 MEQ/L Chloride Level 104 MEQ/L Carbon Dioxide Level 27.2 MEQ/L Anion Gap 8 MEQ/L Blood Urea Nitrogen 8 MG/DL Creatinine 0.81 MG/DL Estimat Glomerular Filtration 82 ML/MIN Rate Random Glucose 103 MG/DL Calcium Level 7.9 MG/DL Total Creatine Kinase 152 U/L Creatine Kinase MB 1.2 NG/ML Troponin I LESS THAN 0.02 NG/ML MDM Medical Decision Making Medical Screen Exam Complete: Yes Emergency Medical Condition: Yes Medical Record Reviewed: Yes Differential Diagnosis NSTEMI, unstable angina, coronary vasospasm, PE, PTX, aortic dissection, pericarditis, myocarditis, endocarditis, PNA, esophageal disease, aneurysm, musculoskeletal etiologies, anxiety, cocaine/sympathomimetic abuse Narrative Course CBC & BMP Diagram 07/28/16 23:30 The creatinine is 0.81 DDimer 0.51 EKG: Sinus, rate 71, normal axis/intervals CXR: NACPD Last [address] Angiography 07/29/16 0017 Signed Impressions: Service Date/Time: July 00:45 - CONCLUSION: 1. No evidence of pulmonary emboli. 2. Multiple patchy areas of alveolar infiltrate in both lungs greatest in the perihilar regions and lower lobes. This is nonspecific and could be infectious or inflammatory. 3. Mild bilateral hilar and mediastinal adenopathy which is also nonspecific. This could represent sarcoidosis. Arjun Alvarado MD Chest X-Ray 07/28/16 [id number] Signed Impressions: Service Date/Time: Thursday, July 28, 2016 23:24 - CONCLUSION: No acute disease. Arjun Alvarado MD The patient is resting comfortably and feels better, is alert and in no distress. The patients results and examination findings were discussed. The repeat examination is unremarkable and benign. The history, exam, diagnostic testing, and current condition do not suggest any significant pathology to warrant further testing, continued ED treatment, admission, or surgical evaluation at this point. The vital signs have been stable. The patient does not have uncontrollable pain, intractable vomiting, or other significant symptoms. The patient's condition is stable and appropriate for discharge. The patient will pursue further outpatient evaluation with a primary care physician or other designated or consulting physician as indicated in the discharge instructions. The patient expressed understanding and was agreeable with this plan. Diagnosis Primary Impression: Cephalgia Qualified Code: R51 - Nonintractable headache, unspecified chronicity pattern , unspecified headache type Additional Impressions: Chest pain Qualified Code: R07.9 - Chest pain, unspecified type Hemoptysis Pneumonia Qualified Code: J18.9 - Pneumonia of both lungs due to infectious organism, unspecified part of lung Lymphadenopathy, hilar Referrals: Primary Care Physician 2 days [facility] call for appointment Additional Instructions: You have a choice when it comes to health care, and we are glad that you chose [facility]. Hopefully, we have met your expectations on today's visit. You are welcome to return to [facility] at any time, as we are committed to meeting the health care needs of our community. LARGE LYMPH NODES WERE SEEN ON YOUR CHEST CT. IT'S IMPORTANT TO FOLLOW UP WITH YOUR PRIMARY CARE PROVIDER TO DISCUSS THIS. Med/Other Pt SpecificInfo: Prescription(s) given Scripts Azithromycin 250 Mg [id number] Mg PO DAILY #4 TAB Ref 0 Prov:Jefry Leong MD 07/29/16 Disposition: 01 DISCHARGE HOME Condition: Stable Jefry Leong MD July 29, 2016 00:03
[2016-07-29 00:15] LABS: CKMB 1.2 NG/ML (0.5-3.6)
[2016-07-29 00:37] VITALS: BP_SYST 103; BP_SYST 112; BP_DIAS 57; BP_DIAS 59; BP_DIAS 60; PULSE 72; RESP 20; O2SAT 93; O2SAT 98
[2016-07-29] MEDS ORDERED: IOHEXOL 350 MG/ML 10 ML VIAL (for RAD DIAG) IV ONE (00:56)
--- NOTE | 2016-07-29 01:11 | RADHPO ---
EXAM DATE/TIME: 07/29/2016 00:45 [facility] COMPARISON: CHEST SINGLE AP, July 28, 2016, 23:24. INDICATIONS : Pleuritic chest pain, hemoptysis, and elevated d-dimer. IV CONTRAST: 75 cc Omnipaque 350 (iohexol) IV RADIATION DOSE: 21.57 CTDIvol (mGy) MEDICAL HISTORY : Factor II disorder. SURGICAL HISTORY : None. ENCOUNTER: Initial ACUITY: 1 day PAIN SCALE: 8/10 LOCATION: chest TECHNIQUE: Volumetric scanning of the chest was performed using a pulmonary embolism protocol MIP images were re constructed. Using automated exposure control and adjustment of the mA and/or kV according to patien t size, radiation dose was kept as low as reasonably achievable to obtain optimal diagnostic quality images. FINDINGS: PULMONARY ARTERIES: No filling defects are seen in the pulmonary arteries through the segmental level. LUNGS: There is no pneumothorax . There are multiple patchy areas of alveolar infiltrate in both lungs great est in the perihilar regions and lower lobes. No concerning pulmonary nodule is visualized. PLEURAE: There is no pleural thickening or pleural effusion. MEDIASTINUM: There is good visualization of the great vessels of the middle mediastinum. Mild bilateral hilar and periaortic adenopathy is present. MUSCULOSKELETAL: Within normal limits for patient age. MISCELLANEOUS: The visualized upper abdominal organs demonstrate no acute abnormality. CONCLUSION: 1. No evidence of pulmonary emboli. 2. Multiple patchy areas of alveolar infiltrate in both lungs greatest in the perihilar regions and l ower lobes. This is nonspecific and could be infectious or inflammatory. 3. Mild bilateral hilar and mediastinal adenopathy which is also nonspecific. This could represent sa rcoidosis. Arjun Alvarado MD on July 29, 2016 at 1:05 Board Certified Radiologist. This report was verified electronically.
[2016-07-29] MEDS ORDERED: AZIT250T3 PO (01:16)
[2016-07-29] MEDS ORDERED: AZITHROMYCIN 250 MG TAB PO ONE (01:30)
[2016-07-29 02:02] VITALS: BP 118/60
--- NOTE | 2016-07-29 13:37 | EKG ---
Date Performed: 07/28/2016 Time Performed: 23:14:32 PTAGE: 30 years EKG: Sinus rhythm Inferior and anterior T wave changes are borderline abnormal Compared to prior tracing no significan t change Borderline ECG PREVIOUS TRACING : 02/19/2016 20.17 DOCTOR: Jaycob Simmons Interpretating Date/Time 07/29/2016 13:36:50
== END 2016-07-29 02:25 | disposition home or self-care (01) ==
LOC: PHED 22:20
DX: R51 Headache (principal); R07.9 Chest pain, unspecified; R04.2 Hemoptysis; J18.9 Pneumonia, unspecified organism; R50.9 Fever, unspecified; M79.605 Pain in left leg; J45.909 Unspecified asthma, uncomplicated; E78.00 Pure hypercholesterolemia, unspecified; M79.7 Fibromyalgia; K21.9 Gastro-esophageal reflux disease without esophagitis
CPT/HCPCS: 71010; 71275; 80048; 82550; 82552; 84484; 85025; 85379; 93005; 96365; 96367; 99285; J3475; J7030; Q9967

== ENCOUNTER 2016-09-26 20:38 | Emergency (ER) | payer OTHER ==
[~2016-09-26] VITALS: Ht 167.6 cm; Wt 139.8 kg
[~2016-09-26 20:38] MED LIST changes: -AUGM875T PO; +AZIT250T3 PO
[2016-09-26 20:45] VITALS: BP 125/99; PULSE 100; RESP 16; TEMP 98.4; O2SAT 96
[2016-09-26] MEDS ORDERED: SERO100T PO (21:28)
[2016-09-26] MEDS ORDERED: SERO50TA PO (21:28)
[2016-09-26] MEDS ORDERED: ONDANSETRON HCL 4 MG/2 ML VIAL IV PUSH ONE (21:30)
[2016-09-26] MEDS ORDERED: SODIUM CHLOR 0.9% 1000 ML INJ 1,000 ML IV SCH (21:30)
--- NOTE | 2016-09-26 22:00 | PD ---
HPI Chief Complaint: Complaint Time Seen by Provider: 21:06 Travel History International Travel<30 days: No Contact w/Intl Traveler<30days: No Traveled to known affect area: No History of Present Illness HPI This is a 31-year-old woman who presents to the emergency department multiple complaints. In short she says she was in the hospital with pneumonia a month ago. She states she's felt weak since then. She's taken a course of Keflex for UTI symptoms and she completed a seven-day course. She was still having symptoms so she started Bactrim. She states that she's had worsening generalized body pains previous to her fibromyalgia, as well as worsening generalized fatigue and generalized weakness. She states she's being worked up for rheumatologic disease and is worried because I told her at the other hospital that her sedimentation rate was a little bit high. She has not had a pelvic exam. She states she's had chronic Lyme disease in the past, as well as trouble with fibromyalgia, and is worried that she may have lupus. History Past Medical History Narrative Medical Fibromyalgia and chronic pain Depression : 5 Para: 2 Social History Alcohol Use: No Tobacco Use: Yes (03/17 ppd) Allergies-Medications (Allergen,Severity, Reaction): Coded Allergies: Compazine (Verified Allergy, Intermediate, Rash, 09/26/16) Benadryl (Verified Allergy, Unknown, panic attack, 09/26/16) pt states only when given iv Fioricet (Verified Adverse Reaction, Severe, ANXIETY, 09/26/16) Reglan (Verified Adverse Reaction, Severe, ANXIETY, 09/26/16) Toradol (Verified Adverse Reaction, Severe, RASH, 09/26/16) Tramadol (Verified Adverse Reaction, Severe, MED REACTION, 09/26/16) Reported Meds & Prescriptions Reported Meds & Active Scripts Active Reported Seroquel (Quetiapine Fumarate) 100 Mg Tab 100 Mg PO HS Seroquel (Quetiapine Fumarate) 50 Mg Tab 50 Mg PO DAILY Multiple Vitamin 1 Tab 1 Tab PO DAILY Proair Hfa 8.5 GM Inh (Albuterol Sulfate) 90 Mcg/Act Aer 2 Puff INH BID PRN 108 mcg/actuation Fluvoxamine (Fluvoxamine Maleate) 100 Mg Tab 100 Mg PO HS Vitamin D-3 (Cholecalciferol) 1,000 Unit Cap Zinc (Zinc Gluconate) 50 Mg Tab Aspirin 81 Mg Chew 81 Mg CHEW DAILY Hydrocodone-Acetaminophen 10-325 mg Tab 1 Tab PO TID PRN Imitrex (Sumatriptan Succinate) 25 Mg Tab 10 Mg PO ONCE PRN If a satisfactory response has not been obtained at 2 hours, a second dose may be administered Verapamil (Verapamil HCl) 120 Mg Tab 120 Mg PO DAILY Percocet (Oxycodone-Acetaminophen) 10-325 mg Tab 1 Tab PO Q4-6H PRN Review of Systems Except as stated in HPI: all other systems reviewed are Neg Physical Exam Narrative GENERAL: Obese 31-year-old woman, no acute distress. SKIN: Focused skin assessment warm/dry. NECK: Trachea midline. No JVD. CARDIOVASCULAR: Regular rate and rhythm. No murmur appreciated. RESPIRATORY: No accessory muscle use. Clear to auscultation. Breath sounds equal bilaterally. GASTROINTESTINAL: Abdomen soft, non-tender, nondistended. Hepatic and splenic margins not palpable. MUSCULOSKELETAL: No obvious deformities. No edema. NEUROLOGICAL: Awake and alert. No obvious cranial nerve deficits. Motor grossly within normal limits. Normal speech. PELVIC: Normal external female genitalia. Scant vaginal discharge. Marked pelvic tenderness throughout with CMT. Data Data Last Documented VS Vital Signs Date Time Temp Pulse Resp B/P Pulse Ox O2 Delivery O2 Flow Rate FiO2 09/26/16 22:16 72 18 117/74 98 Room Air 09/26/16 20:45 98.4 Orders Urinalysis - C+S If Indicated (09/26/16 21:28) Cath For Specimen (09/26/16 21:28) Complete Blood Count With Diff (09/26/16 21:28) Basic Metabolic Panel (Bmp) (09/26/16 21:28) Ondansetron Inj (Zofran Inj) (09/26/16 21:30) Iv Access Insert/Monitor (09/26/16 21:28) Sodium Chlor 0.9% 1000 Ml Inj (Ns 1000 M (09/26/16 21:30) Acetaminophen (Tylenol) (09/26/16 22:15) Gc And Chlamydia Pcr (09/26/16 22:27) Wet Prep Profile (09/26/16 22:27) Ondansetron Inj (Zofran Inj) (09/26/16 22:30) Urine Culture (09/26/16 21:50) Labs Laboratory Tests Test 09/26/16 09/26/16 21:50 22:40 White Blood Count 12.7 TH/MM3 Red Blood Count 4.70 MIL/MM3 Hemoglobin 13.2 GM/DL Hematocrit 39.7 % Mean Corpuscular Volume 84.5 FL Mean Corpuscular Hemoglobin 28.2 PG Mean Corpuscular Hemoglobin 33.4 % Concent Red Cell Distribution Width 13.0 % Platelet Count 317 TH/MM3 Mean Platelet Volume 8.3 FL Neutrophils (%) (Auto) 58.9 % Lymphocytes (%) (Auto) 34.7 % Monocytes (%) (Auto) 3.6 % Eosinophils (%) (Auto) 2.4 % Basophils (%) (Auto) 0.4 % Neutrophils # (Auto) 7.4 TH/MM3 Lymphocytes # (Auto) 4.4 TH/MM3 Monocytes # (Auto) 0.5 TH/MM3 Eosinophils # (Auto) 0.3 TH/MM3 Basophils # (Auto) 0.1 TH/MM3 CBC Comment DIFF FINAL Differential Comment Urine Collection Type CLEAN CATCH Urine Color YELLOW Urine Turbidity SLIGHT Urine pH 6.0 Urine Specific [place] 1.032 Urine Protein TRACE mg/dL Urine Glucose (UA) NEG mg/dL Urine Ketones NEG mg/dL Urine Occult Blood NEG Urine Nitrite NEG Urine Bilirubin NEG Urine Leukocyte Esterase TRACE Urine WBC 6-8 /hpf Urine WBC Clumps OCC Urine Squamous Epithelial > 8 /hpf Cells Urine Bacteria FEW /hpf Urine Mucus MOD /lpf Microscopic Urinalysis Comment CULTURE INDICATED Sodium Level 143 MEQ/L Potassium Level 4.0 MEQ/L Chloride Level 108 MEQ/L Carbon Dioxide Level 25.3 MEQ/L Anion Gap 10 MEQ/L Blood Urea Nitrogen 13 MG/DL Creatinine 0.73 MG/DL Estimat Glomerular Filtration 92 ML/MIN Rate Random Glucose 145 MG/DL Calcium Level 8.9 MG/DL Clue Cells (Wet Prep) NONE SEEN Vaginal Trichomonas (Wet Prep) NONE SEEN Vaginal Yeast (Wet Prep) NONE SEEN MDM Medical Decision Making Medical Screen Exam Complete: Yes Emergency Medical Condition: Yes Interpretation(s) LABS: CBC is remarkable for mild leukocytosis. BMP is unremarkable. UA has a couple white blood cells. Culture pending. Wet prep negative. Differential Diagnosis Somatizations disorder, depression, fibromyalgia, rheumatologic disease, other Narrative Course Medical decision making 31-year-old obese woman his somatic [place] preoccupied about generalized weakness, fatigue, abdominal pain and back pain. Symptoms are suggestive of somatoform disorder. She could have some underlying pathology such as a UTI that could be contributing. She's had previous diagnoses including fibromyalgia and chronic Lyme disease that suggests some somatizations. She is still being worked up for possible lupus. She is worried about her sedimentation rate, and her multiple complaints, was told that she should come to the hospital if she felt more generally weak. I discouraged her from overly focusing on a medical etiology for her generalized symptoms. I think she probably has some element of depression and somatizations. She should certainly continue to pursue workup for other etiologies including lupus. I do not think there is any value in an exhaustive workup in the emergency department today. We will do a catheter urine today to reduce the risk of contamination and further modeling morris in this patient. She's not had a pelvic exam despite her pelvic pain and back pain and apparently positive UA findings. We'll do a pelvic exam today. Patient states she feels very dehydrated. She states that she hasn't really been able to drink as much as she wants because it hurts her belly. She is not vomiting. She had no complaint of diarrhea and so I mentioned that we would not do IV fluids approximately was unable tolerate by mouth. Sensations is been having diarrhea for the past several days. Of note she is also allergic to all nonnarcotic pain medicines. I did discuss this with her as a red flag for a nonorganic etiology of her symptoms. Diagnosis Primary Impression: Abdominal pain Additional Impressions: Somatoform disorder Nausea & vomiting Additional Instructions: Continue your current medications. Follow-up with your primary doctor in the next 2-4 days. Return to the emergency department for any new or worsening symptoms. Med/Other Pt SpecificInfo: Prescription(s) given Scripts Ondansetron Odt (Zofran Odt)4 Mg Tab4 Mg SL Q8HR PRN (Nausea/Vomiting) #15 TAB May substitute non-ODT form. Prov:Doug Castano MD 09/26/16 Disposition: 01 DISCHARGE HOME Condition: Stable Doug Castano MD Sep 26, 2016 22:00
[2016-09-26 22:08] LABS: AUTOMATED NEUTROPHIL # 7.4 TH/MM3 (1.8-7.7); BASOPHIL # 0.1 TH/MM3 (0-0.2); BASOPHIL % 0.4 % (0.0-2.0); EOSINOPHIL # 0.3 TH/MM3 (0-0.4); EOSINOPHIL % 2.4 % (0.0-4.0); HEMATOCRIT 39.7 % (35.0-46.0); HEMO FLAGS DIFF FINAL; LYMPH % 34.7 % (9.0-44.0); LYMPHOCYTE # 4.4 TH/MM3 (1.0-4.8); MEAN CELL VOLUME 84.5 FL (80.0-100.0); MEAN CORPUSCULAR HEMOGLOBIN 28.2 PG (27.0-34.0); MEAN CORPUSCULAR HGB CONC 33.4 % (32.0-36.0); MONO % 3.6 % (0.0-8.0); NEUT % 58.9 % (16.0-70.0); PLATELET COUNT 317 TH/MM3 (150-450); WHITE BLOOD COUNT 12.7 TH/MM3 (4.0-11.0)
[2016-09-26] MEDS ORDERED: ACETAMINOPHEN 500 MG CPLT PO ONE (22:15)
[2016-09-26 22:16] VITALS: BP 117/74; PULSE 72; RESP 18; O2SAT 98
[2016-09-26 22:16] LABS: BLOOD, URINE NEG (NEG); GLUCOSE,URINE NEG (NEG); KETONE, URINE NEG (NEG); NITRITE,URINE NEG (NEG)
[2016-09-26 22:18] LABS: BICARBONATE 25.3 MEQ/L (21.0-32.0)
[2016-09-26] MEDS ORDERED: ONDANSETRON HCL 4 MG/2 ML VIAL IV ONE (22:30)
[2016-09-26 22:31] LABS: URINE COLOR YELLOW (YELLW/STRAW)
[2016-09-26 22:32] LABS: METHOD OF COLLECTION CLEAN CATCH; MUCUS URINE MOD /lpf (OCC); SQUAMOUS EPITHELIAL CELL URINE > 8 /hpf (0-5)
[2016-09-26 22:34] LABS: BACTERIA, URINE FEW /hpf; COMMENT (UR) CULTURE INDICATED; CULTURE IF INDICATED CULTURE INDICATED
[2016-09-26] MEDS ORDERED: ZOFR4TAB3 SL (23:05)
[2016-09-26] MEDS ORDERED: IBUPROFEN 400 MG TAB PO ONE (23:15)
[2016-09-26 23:30] VITALS: BP 122/71; PULSE 79; RESP 19; O2SAT 97
[2016-09-27 04:46] LABS: CHLAMYDIA PCR NOT DETECTED (NOT DETECT); NEISSERIA PCR NOT DETECTED (NOT DETECT)
== END 2016-09-26 23:40 | disposition home or self-care (01) ==
LOC: PHED 20:38
DX: R10.9 Unspecified abdominal pain (principal); F45.9 Somatoform disorder, unspecified; R11.2 Nausea with vomiting, unspecified; D72.829 Elevated white blood cell count, unspecified; R53.1 Weakness; R53.83 Other fatigue; M79.7 Fibromyalgia; Z72.0 Tobacco use; Z86.59 Personal history of other mental and behavioral disorders
CPT/HCPCS: 80048; 81001; 85025; 87086; 87210; 87491; 87591; 96361; 96374; 96375; 99284; J2405; J7030; P9612

== ENCOUNTER 2016-10-10 00:41 | Emergency (ER) | payer OTHER ==
[~2016-10-10] VITALS: Ht 167.6 cm; Wt 145.0 kg
[~2016-10-10 00:41] MED LIST changes: -AZIT250T3 PO; -CYAN25003 SL; -MUCI600T PO; +SERO100T PO; +SERO50TA PO; +ZOFR4TAB3 SL
[2016-10-10 00:48] VITALS: BP 130/87; PULSE 75; RESP 20; TEMP 97.8; O2SAT 97
[2016-10-10] MEDS ORDERED: BACT800T5 PO (01:20)
[2016-10-10] MEDS ORDERED: CYAN1000P IM (01:20)
--- NOTE | 2016-10-10 02:14 | PD ---
HPI Chief Complaint: Headache Time Seen by Provider: 01:32 Travel History International Travel<30 days: No Contact w/Intl Traveler<30days: No Traveled to known affect area: No History of Present Illness HPI The patient is a 31-year-old female, frequent visitor here in the emergency department for headaches who complains of her typical migraine headache. She is moving to [facility] and she states that the stress likely cause this headache. She gets a combination of magnesium, Depakote, Dilaudid and IV fluids for her headache. She denies any focal neurologic change. PFSH Past Medical History Hx Anticoagulant Therapy: Yes (assa) Arthritis: Yes (RA) Asthma: Yes Autoimmune Disease: Yes (RA) Blood Disorders: Yes (FACTOR 2, MTHFR) Anxiety: Yes Depression: Yes Heart Rhythm Problems: Yes (PALPITATIONS) Cancer: No Cardiovascular Problems: No High Cholesterol: Yes Chemotherapy: No Chest Pain: No Congestive Heart Failure: No COPD: No Cerebrovascular Accident: No Diabetes: No Diminished Hearing: No Endocrine: Yes Fibromyalgia: Yes Gastrointestinal Disorders: Yes GERD: Yes Genitourinary: Yes Headaches: Yes Hiatal Hernia: Yes Hypertension: No Immune Disorder: Yes (lyme disease ) Implanted Vascular Access Dvce: No Musculoskeletal: Yes Neurologic: Yes Psychiatric: Yes Reproductive: No Respiratory: Yes Immunizations Current: Yes Migraines: Yes Pneumonia: Yes Radiation Therapy: No Seizures: Yes Sickle Cell Disease: No Sleep Apnea: No Thyroid Disease: Yes (HYPOTHYROID) Ulcer: No Tetanus Vaccination: > 5 Years Influenza Vaccination: Yes ?: Not LMP: 10-05-17 : 5 Para: 2 Miscarriage: 3 Ovarian Cysts: Yes Past Surgical History Abdominal Surgery: Yes AICD: No Arteriovenous Shunt: Yes Cholecystectomy: Yes Hysterectomy: No Insulin Pump: No Joint Replacement: No Oral Surgery: Yes (WISDOM TEETH) Pacemaker: No Other Surgery: Yes Social History Alcohol Use: No Tobacco Use: Yes (03/17 ppd) Substance Use: No Allergies-Medications (Allergen,Severity, Reaction): Coded Allergies: Compazine (Verified Allergy, Intermediate, Rash, 10/10/16) Benadryl (Verified Allergy, Unknown, panic attack, 10/10/16) pt states only when given iv Fioricet (Verified Adverse Reaction, Severe, ANXIETY, 10/10/16) Reglan (Verified Adverse Reaction, Severe, ANXIETY, 10/10/16) Toradol (Verified Adverse Reaction, Severe, RASH, 10/10/16) Tramadol (Verified Adverse Reaction, Severe, MED REACTION, 10/10/16) Reported Meds & Prescriptions Reported Meds & Active Scripts Active Macrobid (Nitrofurantoin Monohydrate Macrocrystals) 100 Mg Capsule 100 Mg PO BID 10 Days Zofran Odt (Ondansetron Odt) 4 Mg Tab 4 Mg SL Q8HR PRN May substitute non-ODT form. Reported Cyanocobalamin Inj (Cyanocobalamin) 1,000 Mcg/Ml Inj 1,000 Mcg IM Q30D Bactrim DS (Sulfamethoxazole-Trimethoprim) 800-160 Mg Tab 1 Tab PO BID Seroquel (Quetiapine Fumarate) 100 Mg Tab 100 Mg PO HS Seroquel (Quetiapine Fumarate) 50 Mg Tab 50 Mg PO DAILY Multiple Vitamin 1 Tab 1 Tab PO DAILY Proair Hfa 8.5 GM Inh (Albuterol Sulfate) 90 Mcg/Act Aer 2 Puff INH BID PRN 108 mcg/actuation Fluvoxamine (Fluvoxamine Maleate) 100 Mg Tab 100 Mg PO HS Vitamin D-3 (Cholecalciferol) 1,000 Unit Cap Zinc (Zinc Gluconate) 50 Mg Tab Aspirin 81 Mg Chew 81 Mg CHEW DAILY Hydrocodone-Acetaminophen 10-325 mg Tab 1 Tab PO TID PRN Imitrex (Sumatriptan Succinate) 25 Mg Tab 10 Mg PO ONCE PRN If a satisfactory response has not been obtained at 2 hours, a second dose may be administered Verapamil (Verapamil HCl) 120 Mg Tab 120 Mg PO DAILY Percocet (Oxycodone-Acetaminophen) 10-325 mg Tab 1 Tab PO Q4-6H PRN Review of Systems Except as stated in HPI: all other systems reviewed are Neg Physical Exam Narrative GENERAL: The patient is obese, alert, oriented 3 and moderate apparent distress with her migraine headache. Her vital signs are normal. SKIN: Focused skin assessment warm/dry. HEAD: Atraumatic. Normocephalic. EYES: Pupils equal and round. No scleral icterus. No injection or drainage. ENT: No nasal bleeding or discharge. Mucous membranes pink and moist. NECK: Trachea midline. No JVD. CARDIOVASCULAR: Regular rate and rhythm. No murmur appreciated. RESPIRATORY: No accessory muscle use. Clear to auscultation. Breath sounds equal bilaterally. GASTROINTESTINAL: Abdomen soft, non-tender, nondistended. Hepatic and splenic margins not palpable. MUSCULOSKELETAL: No obvious deformities. No clubbing. No cyanosis. No edema. NEUROLOGICAL: Awake and alert. No obvious cranial nerve deficits. Motor grossly within normal limits. Normal speech. PSYCHIATRIC: Appropriate mood and affect; insight and judgment normal. Data Data Last Documented VS Orders Valproate Inj (Depacon Inj) (10/10/16 02:15) Magnesium Sulfate 1 Gm Premix (Magnesium (10/10/16 02:15) Hydromorphone Pf Inj (Dilaudid Pf Inj) (10/10/16 02:15) Ondansetron Inj (Zofran Inj) (10/10/16 02:15) Complete Blood Count With Diff (10/10/16 02:40) Basic Metabolic Panel (Bmp) (10/10/16 02:40) Magnesium (Mg) (10/10/16 02:40) Urinalysis - C+S If Indicated (10/10/16 03:01) Urine Culture (10/10/16 02:45) Sodium Chlor 0.9% 1000 Ml Inj (Ns 1000 M (10/10/16 04:00) Nitrofurantoin Monohyd Macrocr (Macrobid (10/10/16 05:00) Hydromorphone Pf Inj (Dilaudid Pf Inj) (10/10/16 05:00) Ondansetron Inj (Zofran Inj) (10/10/16 05:30) Labs MDM Medical Decision Making Medical Screen Exam Complete: Yes Emergency Medical Condition: Yes Medical Record Reviewed: Yes Interpretation(s) Be urine shows large occult blood, 4-9 red cells with 20-24 white cells and few bacteria in the urine and culture is indicated. The CBC shows a hemoglobin of 11.4 with hematocrit of 34.3 but is otherwise unremarkable. The basic metabolic profile shows a GFR of 79 but is otherwise unremarkable. The magnesium level is normal at 1.9. Differential Diagnosis Migraine headache, tension headache, sinus headache, drug seeking behavior, cluster headache, tension/migraine combination headache, subarachnoid hemorrhage unlikely Narrative Course The patient has a migraine headache and urinary tract infection. She requested more Dilaudid than we gave her, this is an a recurrent pattern for her. Nevertheless, she left in improved. Diagnosis Primary Impression: Migraine headache Additional Impression: UTI (urinary tract infection) Additional Instructions: Follow-up with a primary care physician when you get to his [place]. Med/Other Pt SpecificInfo: Prescription(s) given Scripts Nitrofurantoin Monohydrate Macrocrystals (Macrobid)100 Mg [id number] Mg PO BID 10 Days Ref 0 Prov:Johnathan Majano MD 10/10/16 Disposition: 01 DISCHARGE HOME Condition: Stable Johnathan Majano MD Oct 10, 2016 02:14 Urine Squamous Epithelial > 8 /hpf Cells Urine Bacteria FEW /hpf Urine Mucus FEW /lpf Microscopic Urinalysis Comment CULTURE INDICATED White Blood Count 8.1 TH/MM3 Red Blood Count 4.08 MIL/MM3 Hemoglobin 11.4 GM/DL Hematocrit 34.3 % Mean Corpuscular Volume 84.0 FL Mean Corpuscular Hemoglobin 27.8 PG Mean Corpuscular Hemoglobin 33.1 % Concent Red Cell Distribution Width 12.5 % Platelet Count 247 TH/MM3 Mean Platelet Volume 8.2 FL Neutrophils (%) (Auto) 47.5 % Lymphocytes (%) (Auto) 42.5 % Monocytes (%) (Auto) 5.2 % Eosinophils (%) (Auto) 4.2 % Basophils (%) (Auto) 0.6 % Neutrophils # (Auto) 3.9 TH/MM3 Lymphocytes # (Auto) 3.5 TH/MM3 Monocytes # (Auto) 0.4 TH/MM3 Eosinophils # (Auto) 0.3 TH/MM3 Basophils # (Auto) 0.0 TH/MM3 CBC Comment DIFF FINAL Differential Comment Sodium Level 143 MEQ/L Potassium Level 4.3 MEQ/L Chloride Level 107 MEQ/L Carbon Dioxide Level 29.0 MEQ/L Anion Gap 7 MEQ/L Blood Urea Nitrogen 9 MG/DL Creatinine 0.83 MG/DL Estimat Glomerular Filtration 79 ML/MIN Rate Random Glucose 108 MG/DL Calcium Level 8.7 MG/DL Magnesium Level 1.9 MG/DL [facility] Medical Decision Making Medical Screen Exam Complete: Yes Emergency Medical Condition: Yes Medical Record Reviewed: Yes Interpretation(s) Be urine shows large occult blood, 4-9 red cells with 20-24 white cells and few bacteria in the urine and culture is indicated. The CBC shows a hemoglobin of 11.4 with hematocrit of 34.3 but is otherwise unremarkable. The basic metabolic profile shows a GFR of 79 but is otherwise unremarkable. The magnesium level is normal at 1.9. Differential Diagnosis Migraine headache, tension headache, sinus headache, drug seeking behavior, cluster headache, tension/migraine combination headache, subarachnoid hemorrhage unlikely Diagnosis Primary Impression: Migraine headache Additional Impression: UTI (urinary tract infection) Med/Other Pt SpecificInfo: Prescription(s) given Scripts Nitrofurantoin Monohydrate Macrocrystals (Macrobid)100 Mg [id number] Mg PO BID 10 Days Ref 0 Prov:Johnathan Majano MD 10/10/16 Disposition: 01 DISCHARGE HOME Condition: Stable Johnathan Majano MD Oct 10, 2016 02:14
[2016-10-10] MEDS ORDERED: MAGNESIUM SULFATE 1 GM PREMIX 100 ML IV ONE (02:15)
[2016-10-10] MEDS ORDERED: VALPROATE INJ 500 MG in SODIUM CHLORIDE 0.9% INJ 100 ML IV ONE (02:15)
[2016-10-10] MEDS ORDERED: ONDANSETRON HCL 4 MG/2 ML VIAL IV PUSH ONE (02:15)
[2016-10-10] MEDS ORDERED: HYDROmorphone HCL PF 1 MG/ML VIAL IV PUSH ONE (02:15)
[2016-10-10 03:09] VITALS: BP 113/72; PULSE 64; RESP 18; O2SAT 98
[2016-10-10 03:12] LABS: BLOOD, URINE LARGE (NEG); GLUCOSE,URINE NEG (NEG); KETONE, URINE NEG (NEG); NITRITE,URINE NEG (NEG); PH, URINE 5.5 (5.0-8.5)
[2016-10-10 03:15] LABS: AUTOMATED NEUTROPHIL # 3.9 TH/MM3 (1.8-7.7); BASOPHIL % 0.6 % (0.0-2.0); EOSINOPHIL # 0.3 TH/MM3 (0-0.4); EOSINOPHIL % 4.2 % (0.0-4.0); HEMATOCRIT 34.3 % (35.0-46.0); HEMO FLAGS DIFF FINAL; LYMPH % 42.5 % (9.0-44.0); LYMPHOCYTE # 3.5 TH/MM3 (1.0-4.8); MEAN CORPUSCULAR HEMOGLOBIN 27.8 PG (27.0-34.0); MEAN CORPUSCULAR HGB CONC 33.1 % (32.0-36.0); MONO % 5.2 % (0.0-8.0); NEUT % 47.5 % (16.0-70.0); PLATELET COUNT 247 TH/MM3 (150-450); RED BLOOD COUNT 4.08 MIL/MM3 (4.00-5.30); RED CELL DISTRIBUTION WIDTH 12.5 % (11.6-17.2); WHITE BLOOD COUNT 8.1 TH/MM3 (4.0-11.0)
[2016-10-10 03:21] LABS: URINE COLOR YELLOW (YELLW/STRAW)
[2016-10-10 03:22] LABS: BACTERIA, URINE FEW /hpf; COMMENT (UR) CULTURE INDICATED; CULTURE IF INDICATED CULTURE INDICATED; MUCUS URINE FEW /lpf (OCC); SQUAMOUS EPITHELIAL CELL URINE > 8 /hpf (0-5)
[2016-10-10 03:23] LABS: POTASSIUM 4.3 MEQ/L (3.5-5.1)
[2016-10-10 03:25] LABS: MAGNESIUM 1.9 MG/DL (1.5-2.5)
[2016-10-10] MEDS: SODIUM CHLOR 0.9% 1000 ML INJ 1,000 ML IV SCH ×2 (04:00→04:30)
[2016-10-10] MEDS ORDERED: MACR100C2 PO (04:55)
[2016-10-10] MEDS ORDERED: NITROFURANTOIN MONOHYD MACROCR 100 MG CAP PO ONE (05:00)
[2016-10-10] MEDS ORDERED: ONDANSETRON HCL 4 MG/2 ML VIAL IV ONE (05:00)
[2016-10-10] MEDS ORDERED: HYDROmorphone HCL PF 1 MG/ML VIAL IVP ONE (05:00)
[2016-10-10 05:01] VITALS: BP 117/78; PULSE 88; RESP 20; O2SAT 98
[2016-10-10] MEDS ORDERED: ONDANSETRON INJ 8 MG in DEXTROSE 5% IN WATER INJ 50 ML IV PUSH ONE ×4 (05:30)
[2016-10-10 05:45] VITALS: RESP 18
[2016-10-10 05:56] VITALS: BP 115/78
== END 2016-10-10 05:58 | disposition home or self-care (01) ==
LOC: PHED 00:41
DX: G43.909 Migraine, unspecified, not intractable, without status migrainosus (principal); N39.0 Urinary tract infection, site not specified; B96.89 Other specified bacterial agents as the cause of diseases classified elsewhere; F17.200 Nicotine dependence, unspecified, uncomplicated; Z79.899 Other long term (current) drug therapy
CPT/HCPCS: 80048; 81001; 83735; 85025; 87086; 96365; 96366; 96367; 96368; 96375; 99284; J1170; J2405; J3475; J7030